=== PATIENT | female | born 1980 | race African-American/Black ===

== ENCOUNTER 2018-07-18 05:52 | Emergency (ER) | payer BC ==
[~2018-07-18] VITALS: Ht 170.2 cm; Wt 108.9 kg
[2018-07-18] MEDS ORDERED: HYDROCODONE-AP1 EAC6 PO (06:13)
[2018-07-18] MEDS ORDERED: BACTRIM DS TAB1 EACH PO (06:13)
[2018-07-18 06:47] VITALS: BP 133/84
== END 2018-07-18 06:47 | disposition home or self-care (01) ==
LOC: M.ERS 05:52
DX: L03.116 Cellulitis of left lower limb (principal); L03.115 Cellulitis of right lower limb; F17.210 Nicotine dependence, cigarettes, uncomplicated